=== PATIENT | female | born 2000 | race African-American/Black ===

== ENCOUNTER 2019-05-08 18:15 | Emergency (ER) | payer MEDICAID ==
[~2019-05-08] VITALS: Ht 167.6 cm; Wt 93.0 kg
[2019-05-08 20:48] VITALS: BP 120/78
== END 2019-05-08 20:49 | disposition home or self-care (01) ==
LOC: ER 18:15
DX: J01.10 Acute frontal sinusitis, unspecified (principal); J45.909 Unspecified asthma, uncomplicated; Z91.010 Allergy to peanuts; Z91.018 Allergy to other foods
CPT/HCPCS: 99281; 99283

== ENCOUNTER 2019-09-01 00:55 | Emergency (ER) | payer MEDICAID ==
[~2019-09-01] VITALS: Ht 167.6 cm; Wt 90.4 kg
[2019-09-01 02:40] LABS: BASOPHILS % 0.7 % (0.0-2.0); EOSINOPHILS % 0.5 % (0.0-5.0); HEMATOCRIT. 39.3 % (36.0-48.0); HEMOGLOBIN. 12.9 g/dL (12.0-16.0); LYMPHOCYTES % 26.8 % (20.0-50.0); MEAN CORPUSCULAR HEMOGLOBIN 28.5 pg (28.0-32.0); MEAN CORPUSCULAR VOLUME 86.5 fL (81.0-99.0); MEAN PLATELET VOLUME 9.1 fl (7.4-10.4); MONOCYTES % 6.7 % (2.0-8.0); NEUTROPHILS % 65.3 % (40.0-76.0); PLATELET 249 x1000/uL (130-400); RED BLOOD CELL COUNT 4.55 mill/uL (4.2-5.4); RED CELL DISTRIBUTION WIDTH 15.1 % (11.6-14.6)
[2019-09-01 02:46] LABS: CHLORIDE 107 mEq/L (98-107)
[2019-09-01 03:19] LABS: CLARITY URINE CLOUDY (CLEAR); COLOR URINE YELLOW (YELLOW); KETONES URINE 1+ (NEGATIVE); LEUKOCYTE ESTERASE URINE TRACE (NEGATIVE); NITRITE URINE NEGATIVE (NEGATIVE); OCCULT BLOOD URINE NEGATIVE (NEGATIVE); PROTEIN URINE 1+ (NEGATIVE); SPECIFIC GRAVITY URINE 1.042 (1.005-1.030)
[2019-09-01] MEDS ORDERED: SODIUM CHLORIDE 0.9% 1,000 ML IV ONE (03:37)
[2019-09-01] MEDS ORDERED: ONDANSETRON HCL 4MG/2ML INJ IV ONE (04:15)
[2019-09-01 06:48] VITALS: BP 113/75
[2019-09-01] MEDS ORDERED: IOHEXOL-300 100 ML BOTTLE ONE (07:00)
== END 2019-09-01 07:01 | disposition home or self-care (01) ==
LOC: ER 00:55
DX: N39.0 Urinary tract infection, site not specified (principal); K29.70 Gastritis, unspecified, without bleeding; R11.2 Nausea with vomiting, unspecified
CPT/HCPCS: 36415; 74177; 76700; 80053; 81003; 81025; 83690; 85025; 96361; 96374; 99284; J2405; J7030; Q9967; Z7610

== ENCOUNTER 2020-08-26 21:10 | Emergency (ER) | payer MEDICAID ==
[~2020-08-26] VITALS: Ht 165.1 cm; Wt 90.0 kg
[2020-08-26 22:05] VITALS: BP 156/75
== END 2020-08-27 02:00 | disposition left against medical advice (07) ==
LOC: ER 21:10
DX: R68.89 Other general symptoms and signs (principal); Z53.21 Procedure and treatment not carried out due to patient leaving prior to being seen by health care provider
CPT/HCPCS: 93005

== ENCOUNTER 2020-08-27 11:02 | Emergency (ER) | payer MEDICAID ==
[~2020-08-27] VITALS: Ht 167.6 cm; Wt 91.0 kg
[2020-08-27] MEDS ORDERED: IBUPROFEN 800MG TABLET PO ONE (12:15)
[2020-08-27 12:53] LABS: CLARITY URINE CLEAR (CLEAR); COLOR URINE YELLOW (YELLOW); KETONES URINE TRACE (NEGATIVE); LEUKOCYTE ESTERASE URINE 1+ (NEGATIVE); NITRITE URINE NEGATIVE (NEGATIVE); OCCULT BLOOD URINE TRACE (NEGATIVE); PH URINE 5.5 (4.5-8.0); PROTEIN URINE TRACE (NEGATIVE); SPECIFIC GRAVITY URINE 1.033 (1.005-1.030)
[2020-08-27 13:12] VITALS: BP 121/63
[2020-08-31 14:09] LABS: NEISSERIA GONORRHOEAE NAA Negative (Negative)
== END 2020-08-27 13:30 | disposition home or self-care (01) ==
LOC: ER 11:20
DX: N76.0 Acute vaginitis (principal); F12.10 Cannabis abuse, uncomplicated; Z91.010 Allergy to peanuts; Z91.018 Allergy to other foods
CPT/HCPCS: 81003; 81025; 87491; 87591; 93005; 99284; A4565

== ENCOUNTER 2020-11-15 13:21 | Emergency (ER) | payer MEDICAID ==
[~2020-11-15] VITALS: Ht 172.7 cm; Wt 100.0 kg
[2020-11-15 13:25] VITALS: BP 138/73
[2020-11-15] MEDS ORDERED: ACETAMINOPHEN 325MG TABLET PO ONE (13:45)
[2020-11-16] MEDS ORDERED: HYDR-4001 PO (17:28)
[2020-11-16] MEDS ORDERED: TC1U15 TP (17:42)
[2020-11-16] MEDS ORDERED: LORA10TA7 MT (17:42)
== END 2020-11-15 13:55 | disposition left against medical advice (07) ==
LOC: ER 13:21
DX: Z53.21 Procedure and treatment not carried out due to patient leaving prior to being seen by health care provider (principal)

== ENCOUNTER 2021-07-15 23:39 | Emergency (ER) | payer OTHER, MEDICAID ==
[~2021-07-15] VITALS: Ht 175.3 cm; Wt 75.0 kg
[~2021-07-15 23:39] MED LIST: HYDR-4001 PO; LORA10TA7 MT; TC1U15 TP
[2021-07-16 00:30] LABS: BASOPHILS % 0.5 % (0.0-2.0); EOSINOPHILS % 1.2 % (0.0-5.0); HEMATOCRIT. 35.7 % (36.0-48.0); HEMOGLOBIN. 11.5 g/dL (12.0-16.0); LYMPHOCYTES % 14.5 % (20.0-50.0); MEAN CORPUSCULAR HEMOGLOBIN 28.8 pg (28.0-32.0); MEAN PLATELET VOLUME 8.5 fl (7.4-10.4); MONOCYTES % 5.9 % (2.0-8.0); NEUTROPHILS % 77.9 % (40.0-76.0); PLATELET 294 x1000/uL (130-400); RED CELL DISTRIBUTION WIDTH 14.3 % (11.6-14.6)
[2021-07-16 00:37] LABS: CHLORIDE 104 mEq/L (98-107)
[2021-07-16 00:44] LABS: CLARITY URINE TURBID (CLEAR); KETONES URINE 2+ (NEGATIVE); LEUKOCYTE ESTERASE URINE 3+ (NEGATIVE); NITRITE URINE POSITIVE (NEGATIVE); OCCULT BLOOD URINE 3+ (NEGATIVE); PH URINE 5.5 (4.5-8.0); PROTEIN URINE 4+ (NEGATIVE); SPECIFIC GRAVITY URINE 1.043 (1.005-1.030)
[2021-07-16] MEDS ORDERED: ACETAMINOPHEN 500MG TABLET PO ONE (00:45)
[2021-07-16 00:46] LABS: COLOR URINE BLOODY (YELLOW)
[2021-07-16] MEDS ORDERED: ONDANSETRON 4MG ODT PO ONE (01:00)
[2021-07-16 01:03] LABS: B-HCG QUANTITATIVE 62503 mIU/mL (<3)
[2021-07-16] MEDS ORDERED: ACETAMINOPHEN 500MG TABLET PO NR (01:15)
[2021-07-16] MEDS ORDERED: CEPH500T MT (03:33)
[2021-07-16] MEDS ORDERED: CEPHALEXIN 250MG CAPSULE PO NR (04:00)
[2021-07-16 04:37] VITALS: BP 128/67
== END 2021-07-16 04:48 | disposition home or self-care (01) ==
LOC: ER 23:39
DX: O23.41 Unspecified infection of urinary tract in pregnancy, first trimester (principal); N39.0 Urinary tract infection, site not specified; O20.0 Threatened abortion; O20.8 Other hemorrhage in early pregnancy; O99.321 Drug use complicating pregnancy, first trimester; F12.188 Cannabis abuse with other cannabis-induced disorder; R11.0 Nausea; Z3A.11 11 weeks gestation of pregnancy
CPT/HCPCS: 36415; 76801; 76817; 80053; 81003; 81025; 84702; 85025; 86850; 86900; 86901; 99285; Q0162

== ENCOUNTER 2022-08-08 02:54 | Emergency (ER) | payer MEDICAID, OTHER ==
[~2022-08-08] VITALS: Ht 165.1 cm; Wt 85.5 kg
[~2022-08-08 02:54] MED LIST changes: +CEPH500T MT
[2022-08-08 03:00] VITALS: BP 153/65
== END 2022-08-08 04:30 | disposition left against medical advice (07) ==
LOC: ER 02:54
DX: Z53.21 Procedure and treatment not carried out due to patient leaving prior to being seen by health care provider (principal)